=== PATIENT | female | born 1940 | race Caucasian/White ===

== ENCOUNTER 2021-11-05 19:10 | Observation (INO) | payer BC, OTHER ==
[2021-11-05 19:44] LABS: Protime INR 1.2
[2021-11-05 19:45] LABS: Absolute Lymphocytes (CBC) 2.6 K/uL (0.7-4.9); Hematocrit 36.9 % (36.0-45.0); Lymphocytes % 42.4 % (15.3-44.8); MCV 96.6 fL (80-100); MPV 7.3 fL (7.6-11.3); RBC Red Blood Cell Count 3.82 M/uL (3.86-4.86)
[2021-11-05 20:01] LABS: ALT/SGPT 83 U/L (12-78); AST/SGOT 88 U/L (15-37); Albumin 3.3 g/dL (3.4-5.0); Alkaline Phosphatase 92 U/L (45-117); BUN Blood Urea Nitrogen 22 mg/dL (7-18); Bicarbonate 22 mmol/L (21-32); Bilirubin Total 0.4 mg/dL (0.2-1.0); Glomerular Filtration Rate 42 ml/min (=/>90); Glucose Level 196 mg/dL (74-106); Lipase 89 U/L (73-393); Magnesium 1.9 mg/dL (1.8-2.4); NT PRO-BNP 26 pg/mL (<450); Potassium 3.7 mmol/L (3.5-5.1); Protein, Total 7.1 g/dL (6.4-8.2); Sodium Level 139 mmol/L (136-145); Troponin High Sensitivity 7.6 pg/mL (<58.9)
[2021-11-05 20:02] LABS: Bilirubin Direct < 0.1 mg/dL (0-0.2)
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
--- NOTE | 2021-11-05 20:36 | RAD REPORT ---
EXAM DESCRIPTION: CT - Head C Spine Cap Wo Con - 11/05/2021 8:17 pm CLINICAL HISTORY: Head and neck injury with chest and abdominal pain status post fall TECHNIQUE: Computed axial tomography of head, neck, chest, abdomen and pelvis obtained. IV and oral contrast not requested. Coronal and sagittal reconstruction performed. All CT scans are performed using dose optimization technique as appropriate and may include automated exposure control or mA/KV adjustment according to patient size. COMPARISON: None FINDINGS: An intracranial bleed is not seen. Small low-density areas within the right thalamus may represent ol d lacunar infarctions. Small low-density areas within the right frontal lobe probably old infarcts The ventricles are normal in caliber. An extra-axial fluid collection is not noted. . Fluid within the left maxillary sinus may be related to acute sinusitis A cervical fracture is not seen. No dislocation is noted. Mild anterior subluxation C5 on C6. Signifi cant paravertebral soft tissue swelling is not noted. The evaluation of mediastinum, pepe, vessels, solid organs and bowel is limited secondary to the lack of contrast administration. A mediastinal hematoma is not noted. A pleural effusion is not seen. A lung contusion is not present. The liver,spleen, pancreas, adrenals,kidneys and bladder do not demonstrate a traumatic injury Deformity of the L2 vertebral body appears chronic. IMPRESSION: No acute intracranial abnormality is seen. A cervical fracture is not visualized. If the patient continues have symptoms to suggest intracrania l/spinal cord/ligamentous pathology MRI be recommended No traumatic abnormality involving the chest/abdomen/pelvis.
--- NOTE | 2021-11-05 20:40 | RAD REPORT ---
EXAM DESCRIPTION: Arabella Single View11/05/2021 8:20 pm CLINICAL HISTORY: Chest pain COMPARISON: none FINDINGS: The lungs appear clear of acute infiltrate. The heart is normal size IMPRESSION: No acute abnormalities displayed
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
[2021-11-05] MEDS ORDERED: ASPIRIN 81 MG CHEWABLE TABLET ONE (21:38)
[2021-11-05] MEDS ORDERED: FAMOTIDINE 20 MG/2 ML VIAL IV ONE (21:39)
[2021-11-05] MEDS ORDERED: BEBTELOVIMAB 175 MG/2 ML VIAL IV ONE (21:39)
[2021-11-05] MEDS ORDERED: ENOXAPARIN 40 MG/0.4 ML SQ ONE (21:39)
[2021-11-05] MEDS ORDERED: HYDROCODONE/APAP 5/325 MG TAB PO PRN (22:46)
[2021-11-05] MEDS ORDERED: ACETAMINOPHEN 500 MG TAB PO PRN (22:46)
[2021-11-05] MEDS ORDERED: ONDANSETRON 4 MG/2 ML VIAL IV PRN (22:46)
--- NOTE | 2021-11-05 22:47 | RAD REPORT ---
EXAM DESCRIPTION: USExtrem Venous W Compress Bil11/05/2021 10:22 pm CLINICAL HISTORY: Leg pain COMPARISON: none FINDINGS: The common femoral, superficial femoral, popliteal and posterior tibial veins bilaterally are compressible and demonstrate augmentation. Doppler demonstrates good flow. Grayscale, color and spectral analysis performed on all vessels IMPRESSION: No evidence of deep venous thrombosis involving either lower extremity.
[2021-11-06] MEDS: NA CHLORIDE 0.9% 1,000 ML IV SCH ×2 (02:59→12:06)
[2021-11-06] MEDS ORDERED: MELATONIN 5 MG TABLET PO ONE ×2 (03:00→03:01)
[2021-11-06] MEDS ORDERED: NA CHLORIDE 0.9% 1,000 ML ONE (03:01)
[2021-11-06 05:13] LABS: Absolute Lymphocytes (CBC) 0.7 K/uL (0.7-4.9); Hematocrit 34.9 % (36.0-45.0); Lymphocytes % 17.1 % (15.3-44.8); MCV 96.7 fL (80-100); RBC Red Blood Cell Count 3.61 M/uL (3.86-4.86)
[2021-11-06 05:30] LABS: Albumin 3.3 g/dL (3.4-5.0); Bilirubin Total 0.3 mg/dL (0.2-1.0); Magnesium 1.9 mg/dL (1.8-2.4); Potassium 3.8 mmol/L (3.5-5.1); Protein, Total 7.1 g/dL (6.4-8.2); Thyroid Stimulating Hormone 0.503 uIU/mL (0.360-3.740); Troponin High Sensitivity 32.2 pg/mL (<58.9)
[2021-11-06] MEDS ORDERED: ENOXAPARIN 60 MG/0.6 ML SQ ONE (07:50)
[2021-11-06] MEDS ORDERED: lisinopriL 10 MG TAB ONE (07:50)
[2021-11-06] MEDS ORDERED: ASPIRIN EC 81 MG TAB PO ONE (07:50)
--- NOTE | 2021-11-06 08:00 | RAD REPORT ---
EXAM DESCRIPTION: CT - Chest For Pe Angio - 11/06/2021 7:32 am CLINICAL HISTORY: Chest pain/syncope COMPARISON: November 05, 2021 TECHNIQUE: Dynamically enhanced axial 3 mm thick images of the chest were obtained during administra tion of <100> mL Isovue 370 IV contrast. Coronal and oblique reconstruction images were generated and reviewed. Exam utilizes a protocol for optimal evaluation of pulmonary arterial tree. Maximum intensity projections 3D imaging was utilized All CT scans are performed using dose optimization technique as appropriate and may include automated exposure control or mA/KV adjustment according to patient size. FINDINGS: A pulmonary embolus is not seen. A thoracic aortic aneurysm is not noted. A pleural effusion is not seen. A pericardial effusion is not seen. A lung consolidation is not present. IMPRESSION: Negative for a pulmonary embolism.
[2021-11-06] MEDS ORDERED: ENOXAPARIN 60 MG/0.6 ML SQ SCH (09:00)
[2021-11-06] MEDS ORDERED: ASPIRIN EC 81 MG TAB PO SCH (09:00)
[2021-11-06] MEDS ORDERED: lisinopriL 10 MG TAB PO SCH (09:00)
[2021-11-06 09:46] VITALS: O2SAT 100
[2021-11-06] MEDS ORDERED: ACETAMINOPHEN 325 MG TABLET ONE (12:42)
[2021-11-06] MEDS ORDERED: HYDROCORTISONE SUC 100 MG INJ ONE (12:42)
--- NOTE | 2021-11-06 16:36 | P.DS ---
Admission Date: 11/05/21 Discharge Date: 11/06/21 Disposition: ROUTINE DISCHARGE Discharge Condition: GOOD Reason for Admission: Syncope Consultations: 1. Cardiology Hospital Course: DIAGNOSES: # Syncope # Sinus Tachycardia possibly due to Dehydration, resolved # Chronic Human Immunodeficiency Virus Infection # Hypertension HOSPITAL COURSE: Ms. Minnie Gonzalez is a pleasant 81 year old female with a past medical history significant for chronic human immunodeficiency virus infection and hypertension who was admitted to the [facility] on 11/05/2021 for syncope. She was brought in to the Emergency Department by EMS, who reportedly thought she was in ventricular tachycardia. However, per the ED provider the telemetry strip was sinus tachycardia. The telemetry strip is no longer available for my review, so Cardiology was consulted for further evaluation. Upon further evaluation, her vital signs have remained stable. Her laboratory tests were notable for minimally elevated LFTs, a Ddimer of 7952, and a positive COVID-19 test. She had several radiology studies including, a chest x-ray noting "no acute abnormalities displayed," a CT head/cervical spine noting, "no acute intracranial abnormality is seen. A cervical fracture is not visualized. If the patient continues have symptoms to suggest intracranial/spinal cord/ligamentous pathology MRI be recommended. No traumatic abnormality involving the chest/abdomen/pelvis," a bilateral lower extremity Doppler revealing, "no evidence of deep venous thrombosis involving either lower extremity," and a CT chest angiogram noting, "negative for a pulmonary embolism." Dr. Trinh evaluated her and felt that her symptoms more than likely were caused by noncardiac etiologies, such as heat exhaustion from being outside in the swimming pool. He has cleared her for discharge and advised that she follow-up with her PCP and coffee roaster in [place]. On 11/06/2021, she was seen on morning rounds and deemed medically stable for discharge. She was discharged with instructions to schedule follow-up appointments with her PCP in 3-5 days and a coffee roaster in 1-2 weeks. She was given the opportunity to ask questions and reported no further questions. Furthermore, all questions were answered to the best of my ability. Today, I personally spent 20 minutes with her, of which greater than 50% of the time was spent in patient education, counseling, and coordination of care as described above. Vital Signs/Physical Exam: Temp Pulse Resp BP Pulse Ox 72 14 118/62 97 11/06/21 11:54 11/06/21 11:54 11/06/21 11:54 11/06/21 11:54 General: Alert, In no apparent distress, Oriented x3 HEENT: Atraumatic, Mucous membr. moist/pink, EOMI Neck: Supple, Without JVD or thyroid abnormality Respiratory: Clear to auscultation bilaterally, Normal air movement Cardiovascular: No edema, Regular rate/rhythm, No gallops, No rubs, No murmurs Gastrointestinal: Normal bowel sounds, Soft and benign, No tenderness, No rebound, No guarding Musculoskeletal: No clubbing Integumentary: No rashes Neurological: Normal gait, Normal speech, Normal strength at 5/5 x4 extr, Normal tone, Sensation intact, Cranial nerves 3-12 intact, Normal affect Laboratory Data at Discharge: WBC 4.4 K/uL (4.3-10.9) D 11/06/21 03:47 Hgb 12.0 g/dL (12.0-15.0) 11/06/21 03:47 Hct 34.9 % (36.0-45.0) L 11/06/21 03:47 Plt Count 166 K/uL (152-406) 11/06/21 03:47 PT 13.2 SECONDS (9.5-12.5) H 11/05/21 19:32 INR 1.20 11/05/21 19:32 Sodium 139 mmol/L (136-145) 11/06/21 03:47 Potassium 3.8 mmol/L (3.5-5.1) 11/06/21 03:47 BUN 18 mg/dL (7-18) 11/06/21 03:47 Creatinine 1.00 mg/dL (0.55-1.3) 11/06/21 03:47 Glucose 105 mg/dL (74-106) 11/06/21 03:47 Magnesium 1.9 mg/dL (1.8-2.4) 11/06/21 03:47 Total Bilirubin 0.3 mg/dL (0.2-1.0) 11/06/21 03:47 AST 47 U/L (15-37) H 11/06/21 03:47 ALT 73 U/L (12-78) 11/06/21 03:47 Alkaline Phosphatase 89 U/L (45-117) 11/06/21 03:47 Triglycerides 65 mg/dL (<150) 11/06/21 03:47 Cholesterol 179 mg/dL (<200) 11/06/21 03:47 HDL Cholesterol 44 mg/dL (40-60) 11/06/21 03:47 Cholesterol/HDL Ratio 4.07 11/06/21 03:47 Lipase 89 U/L (73-393) 11/05/21 19:32 Physician Discharge Instructions: 1. Please schedule follow-up appointment with your PCP in 3-5 days. 2. Please schedule follow-up appointment with Cardiology in 1-2 weeks. Diet: Regular Activity: Ad faye Time spent managing pt's care (in minutes): 20
[2021-11-06 17:55] VITALS: BP 125/74
[2021-11-06 17:57] VITALS: TEMP 97.8
--- NOTE | 2021-11-06 20:02 | CON ---
Date of Consultation: 11/06/2021 Reason For Consultation: Syncope. History Of Present Illness: An 81-year-old female, history of HIV that is very well controlled, unde tectable viral load, hypertension, presented after a syncopal episode. This patient lives in [facility], came in to spend time with family. Yesterday was very hot outside and spent a good time out in th e heat and she went for some swimming at the pool and was in a 4 feet deep water. Suddenly, she just passed out. Denies having any chest pain or shortness of breath or palpitations. EMS was called an d it was reported by EMS that she had a ventricular tachycardia episode, and apparently, those strips were evaluated by emergency room physician and they were sinus tachycardia, not ventricular tachycar jasmina; however, I am not able to locate those rhythm strips. The patient denies having any cardiac his tory and is very active. No chest pain. No shortness of breath. Past Medical History: HIV and hypertension. Medications: Refer to reconciliation sheet for detailed list. Allergies: NO KNOWN DRUG ALLERGIES. Past Surgical History: Mastectomy and . Family History: No premature coronary artery disease or cancer. Social History: She does not smoke or drink. Does not use any drugs. Review of Systems: All systems reviewed and they were negative except as mentioned in the HPI. Physical Examination: Vital Signs: Reviewed. Head and Neck: Pupils are equal, reactive to light. Intact eye movements. No JVD. No cervical lym phadenopathy. Neck: Supple. Thyroid is not enlarged. Lungs: Clear to auscultation bilaterally. No rhonchi, rales, or crackles. No accessory muscle use. Heart: Regular rate and rhythm. No extra sounds. Abdomen: Soft, nontender. Bowel sounds positive. No organomegaly. No masses or hernia. No rigidi ty or rebound. Extremities: No edema, clubbing, cyanosis. Intact pulses. Skin: No rashes. Neurologic: Alert, awake, oriented x3. No acute focal deficits appreciated. Investigations: EKG is sinus tachycardia on arrival with right bundle-branch block and nonspecific T -wave abnormalities. Her creatinine is 1.0. Troponin x3 are negative. NT-proBNP is 26. TSH was no rmal. Hemoglobin is 12.0. Assessment And Recommendation: 1.Syncope. This could be due to dehydration and hypotension, being out in the heat all day, and I a m not able to locate those rhythm strips. However, as per the notes, the ER physician interpreted th ose strips as a sinus tachycardia and not ventricular tachycardia. Since she has been in the hospita , no frequent premature ventricular contractions or ventricular tachycardias were happening on the m onitor. Cardiac enzymes are normal and NT-proBNP is normal. At this point, this patient can potenti ally be managed as an outpatient after proper hydration. If there is no other reasons to keep in the hospital, she can be released and followed up as an outpatient, as she has a flight to go back to [facility] tomorrow around early afternoon and she was instructed to follow up with her food preservation scientist as s oon as she makes it home. 2.Hypertension. Blood pressure is controlled. Probably, I will keep her off blood pressure medicat ions at this point until her workup for syncope is complete. /NICHO Voice ID: [id number] Report ID: [id number]
[2021-11-06] MEDS ORDERED: MELATONIN 5 MG TABLET PO SCH (21:00)
--- NOTE | 2021-11-08 13:53 | EKG ---
Test Date: 2021-11-05 Test Time: 19:15:49 Cs Associate: SHERRILL MEASUREMENT RESULTS: Intervals: Rate: 114 DE: 168 QRSD: 124 QT: 350 QTc: 482 [place]: P: 77 DE: 168 QRS: -73 T: 92 INTERPRETIVE STATEMENTS: Sinus tachycardia with fusion complexes Possible Left atrial enlargement Right bundle branch block Left anterior fascicular block Bifascicular block Anteroseptal infarct, age undetermined Abnormal ECG No previous ECG available for comparison Electronically Signed On 11-08-21 13:48:26 CDT by Rishabh Trinh
== END 2021-11-06 17:56 | disposition home or self-care (01) ==
LOC: ER 19:10 → EDBD 19:10 → ERHOLD 21:17
PROVIDERS: ADMIT Internal Medicine; ATTEND Internal Medicine
DX: R55 Syncope and collapse (principal); U07.1 COVID-19; R00.0 Tachycardia, unspecified; I10 Essential (primary) hypertension; E86.0 Dehydration; I95.9 Hypotension, unspecified; B20 Human immunodeficiency virus [HIV] disease; I45.10 Unspecified right bundle-branch block; Z28.310 Unvaccinated for COVID-19; Z85.3 Personal history of malignant neoplasm of breast; Z90.10 Acquired absence of unspecified breast and nipple; Z82.49 Family history of ischemic heart disease and other diseases of the circulatory system; Z83.3 Family history of diabetes mellitus
CPT/HCPCS: 36415; 70450; 71045; 71250; 71275; 72125; 80048; 80053; 80061; 80076; 80320; 83036; 83690; 83735; 83880; 84443; 84484; 85025; 85379; 85610; 93005; 93970; 96372; 96374; 99284; G0378; J1650; J1720; J3490; J7030; Q9967; U0003